=== PATIENT | female | born 1995 | race Caucasian/White ===

== ENCOUNTER 2017-06-06 20:37 | Emergency (ER) | payer SELFPAY ==
[~2017-06-06] VITALS: Ht 165.1 cm; Wt 63.5 kg
--- NOTE | 2017-06-06 20:37 | NUR ---
PT SOFIYA GAO, PREBOOK. TAKEN TO CHAIR E
[2017-06-06 20:50] VITALS: BP 129/73
--- NOTE | 2017-06-06 21:20 | NUR ---
21Y/F PT. BIB PD TO ED FOR PRE-BOOK. PT. STATES HAVING CHEST PAIN. NO MED HX. AAO X4, AMBULATORY WITH STEADY GAIT. C/O CP 11/06, NO RADIATION. VSS, EKG NSR. ER MADE AWARE OF PT. STATUS.
--- NOTE | 2017-06-06 21:37 | NUR ---
PT TAKEN TO XRAY
[2017-06-06 21:53] VITALS: BP 119/82
--- NOTE | 2017-06-06 21:53 | NUR ---
Patient discharged with v/s stable. Written and verbal after care instructions given and explained. Patient verbalized understanding. Police with in custody. All questions addressed prior to discharge. Advised to follow up with PMD.
== END 2017-06-06 21:53 ==
LOC: MED 20:37
DX: Z02.89 Encounter for other administrative examinations (principal); M94.0 Chondrocostal junction syndrome [Tietze]
CPT/HCPCS: 71045; 93005; 99284